=== PATIENT | female | born 1945 | race American Indian/Alaskan Native ===

== ENCOUNTER 2016-03-25 14:41 | Outpatient (CLI) | payer MEDICARE ==
[2016-03-25] MEDS ORDERED: XYLOCAINE 1% 20 mL INFILTRATI ONE (14:56)
[2016-03-25] MEDS ORDERED: DEPO-MEDROL INTRA-ARTI ONE (14:58)
--- NOTE | 2016-03-25 16:54 | Fluoroscopy Report ---
Left hip injection with fluoroscopic guidance. History: Left hip arthritis. Procedure: The patient's skin surface was prepped and draped using sterile technique. Local anesthetic was injected into the skin. A 22-gauge spinal needle was advanced into the joint capsule of the left hip. Initial injection of 1-2 cc of Omnipaque confirmed the intracapsular location of the needle tip. The subsequently, a mixture of 40 mg of Depo-Medrol and 2 mL of 1% lidocaine were injected successfully. The patient tolerated the procedure well clinically. No complications occurred.
== END 2016-03-25 14:42 | disposition home or self-care (01) ==
LOC: FLUORO 14:41
PROVIDERS: ATTEND Physical Medicine & Rehabilitation
DX: M16.9 Osteoarthritis of hip, unspecified (principal)
CPT/HCPCS: 20610; 77002; J1030; Q9965

== ENCOUNTER 2016-10-01 11:18 | Outpatient (CLI) | payer MEDICARE ==
--- NOTE | 2016-10-01 14:15 | Mammography Report ---
BONE DEXA:10/01/16 11:18:00 CLINICAL: Postmenopausal. No comparison. TECHNIQUE: Two site bone DEXA performed on an Hologic scanner. FINDINGS: The average BMD of the lumbar spine L1-L4 is 1.3-3g/cm squared with a T-score of +1.6 and a Z-score of +4.0. The average BMD of the left hip is 0.881g/cm squared with a T-score of -1.0 and a Z-score of +0.2. IMPRESSION: WHO classification: Normal with average fracture risk based on both spine and left hip measurements. RECOMMENDATION: Clinical correlation and routine screening. DEFINITIONS: BMD = Bone Mineral Density T-score = BMD related to mean peak bone mass of young adult (mean expressed in Standard Deviation) Z-score = Age matched BMD expressed in SD World Health Organization (WHO) Diagnostic Criteria Normal T-score > -1 SD Osteopenia T-score between -1 and -2.4 SD Osteoporosis T-score -2.5 SD or below NOTE: BMD is not the only risk factor for fracture. One should also consider factors such as the patient's age, risk of falling, previous osteoporotic fracture, family history of osteoporotic fractures, current smoker, and low body weight. Z-scores are not calculated if >80 years of age.
== END 2016-10-01 11:19 | disposition home or self-care (01) ==
LOC: SPVWC 11:18
PROVIDERS: ATTEND Internal Medicine
DX: M15.4 Erosive (osteo)arthritis (principal); Z78.0 Asymptomatic menopausal state
CPT/HCPCS: 77080

== ENCOUNTER 2016-10-27 13:53 | Emergency (ER) | payer MEDICARE ==
[2016-10-27 16:00] LABS: Basophils % (Auto) 1.5 % (0.0-1.8); Eosinophils % (Auto) 6.1 % (0.0-4.3); Hematocrit 35.7 % (30.3-42.9); Hemoglobin 11.7 gm/dl (10.1-14.3); Mean Corpuscular HGB Conc 33 % (30-34); Mean Corpuscular Hemoglobin 27 pg (28-32); Mean Corpuscular Volume 82 fl (79-97); Platelet Count 229 K/mm3 (140-440); Red Blood Count 4.37 M/mm3 (3.65-5.03); Red Cell Distribution Width 13.3 % (13.2-15.2); White Blood Count 5.7 K/mm3 (4.5-11.0)
[2016-10-27 16:15] LABS: INR 0.92 (0.87-1.13)
[2016-10-27 16:16] LABS: Partial Thromboplastin Time 26.7 Sec. (24.2-36.6)
[2016-10-27 16:19] LABS: Anion Gap 19 mmol/L; BUN/Creatinine Ratio 13.75; Blood Urea Nitrogen 11 mg/dL (7-17); Calcium 9.3 mg/dL (8.4-10.2); Carbon Dioxide 25 mmol/L (22-30); Chloride 104.7 mmol/L (98-107); Glucose 92 mg/dL (65-100); Potassium 3.8 mmol/L (3.6-5.0); Sodium 145 mmol/L (137-145)
[2016-10-27 16:23] LABS: Alanine Aminotransferase 10 units/L (7-56); Albumin/Globulin Ratio 0.9 %; Alkaline Phosphatase 126 units/L (35-129); Total Protein 8.6 g/dL (6.3-8.2)
[2016-10-27 16:27] LABS: Bilirubin,Direct < 0.2 mg/dL (0-0.2); Bilirubin,Indirect 0.2 mg/dL
--- NOTE | 2016-10-27 16:49 | XRay Report ---
FINAL REPORT EXAM: XR CHEST ROUTINE 2V HISTORY: marlee le swelling TECHNIQUE: Two view chest PA and lateral PRIORS: None. FINDINGS: Cardiac and mediastinal contours are unremarkable. No focal pulmonary infiltrate is identified. No pleural fluid collection seen. Pulmonary vasculature is unremarkable. IMPRESSION: Negative two-view chest
[2016-10-27 18:06] VITALS: BP 152/77
--- NOTE | 2016-10-29 18:34 | Emergency Department Report ---
Entered by WILLIS PAINTER, acting as scribe for RY BOB PA. ED Extremity Problem HPI - General Chief complaint: Extremity Problem,Nontraumatic Stated complaint: LEG PAIN Time Seen by Provider: 10/27/16 15:14 Source: patient Mode of arrival: Wheelchair Limitations: No Limitations - History of Present Illness Initial comments: 71 year old patient with PMHx arthritis and HTN presents to ED with c/o bilateral LE pain for 1 month. Patient states ankles are swollen with pitting edema. Patient reports she had similar symptoms before where she visited her PCP , Dr. Jacobo at [facility], and took her off the water pills she was prescribed. Patient states aggravation while moving, and alleviated while laying down. Denies numbness, tingling, chest pain, sob, fever, cough, fever, and chills. Patient reports no PMHx or FHx of CHF or DM. Patient is currently on 4 HTN meds. She said when she put her feet up swelling goes down but when she walks this when she has swelling. MD Complaint: extremity pain, extremity swelling, joint swelling, joint paint Onset/Timin -: month(s) (1) Location: bilateral lower extremity History of Same: No -: Yes arthralgia, No fever, No associated dyspnea, No associated chest pain Radiation: none Severity scale (0 -10): 7 Quality: aching Consistency: intermittent Improves with: elevation, rest Worsens with: weight bearing, walking, exertion, palpation Associated Symptoms: denies other symptoms, arthralgias. denies: chest pain, shortness of breath, fever, myalgias, rash - Related Data Previous Rx's Medication Instructions Recorded Last Taken Type traMADol [Ultram] 50 mg PO Q6HR PRN #12 tablet 10/27/16 Unknown Rx Allergies Allergy/AdvReac Type Severity Reaction Status Date / Time No Known Allergies Allergy Unverified 05/14/14 14:22 ED Review of Systems Comment: All other systems reviewed and negative Constitutional: denies: chills, fever Respiratory: denies: cough, shortness of breath, wheezing Cardiovascular: denies: chest pain, palpitations Gastrointestinal: denies: abdominal pain, nausea, vomiting, diarrhea Musculoskeletal: denies: back pain, joint swelling, arthralgia Skin: denies: rash, lesions Neurological: denies: headache, weakness, numbness, paresthesias ED Past Medical Hx - Past Medical History Previous Medical History?: Yes Hx Hypertension: Yes Hx Arthritis: Yes - Surgical History Past Surgical History?: Yes Additional Surgical History: - Family History Family history: hypertension - Social History Smoking Status: Never Smoker Substance Use Type: None - Medications Home Medications: Home Medications Medication Instructions Recorded Confirmed Last Taken Type traMADol [Ultram] 50 mg PO Q6HR PRN #12 tablet 10/27/16 Unknown Rx ED Physical Exam - General Limitations: No Limitations General appearance: alert, in no apparent distress - Head Head exam: Present: atraumatic, normocephalic, normal inspection - Eye Eye exam: Present: normal appearance, PERRL, EOMI. Absent: periorbital swelling , periorbital tenderness Pupils: Present: normal accommodation - ENT ENT exam: Present: normal exam, normal orophraynx, mucous membranes moist, TM's normal bilaterally, normal external ear exam - Neck Neck exam: Present: normal inspection, full ROM. Absent: tenderness, meningismus, lymphadenopathy - Respiratory Respiratory exam: Present: normal lung sounds bilaterally. Absent: respiratory distress, wheezes, rales, rhonchi, stridor, chest wall tenderness, accessory muscle use, decreased breath sounds - Cardiovascular Cardiovascular Exam: Present: regular rate, normal rhythm, normal heart sounds ( s1/s2). Absent: systolic murmur, diastolic murmur, JVD, S3, S4 - GI/Abdominal GI/Abdominal exam: Present: soft, normal bowel sounds. Absent: distended, tenderness, guarding, rebound, rigid, diminished bowel sounds - Extremities Exam Extremities exam: Present: full ROM, tenderness (bilateral ankle), normal capillary refill, pedal edema (bilateral LE edema, edema to her legs and ankle but, ankle is swollen than any extermity ), joint swelling, other (2+ pulses. Patient with swelling to both legs, ankles and feet. Swelling to ankle is greater than swelling to legs and feet. No neurovascular compromise.). Absent : normal inspection, calf tenderness - Back Exam Back exam: Present: normal inspection, full ROM. Absent: tenderness, CVA tenderness (R), CVA tenderness (L), muscle spasm, paraspinal tenderness, vertebral tenderness, rash noted - Neurological Exam Neurological exam: Present: alert, oriented X3, normal gait, reflexes normal. Absent: motor sensory deficit - Psychiatric Psychiatric exam: Present: normal affect, normal mood - Skin Skin exam: Present: warm, dry, intact, normal color. Absent: rash ED Course Vital Signs 10/27/16 10/27/16 15:02 18:05 Temperature 98.5 F 97.7 F Pulse Rate 73 77 Respiratory 18 18 Rate Blood Pressure 127/75 Blood Pressure 127/75 152/77 [Right] O2 Sat by Pulse 100 99 Oximetry Lab Results 10/27/16 10/27/16 10/27/16 Range/Units 15:29 15:29 15:51 WBC 5.7 (4.5-11.0) K/mm3 RBC 4.37 (3.65-5.03) M/mm3 Hgb 11.7 (10.1-14.3) gm/dl Hct 35.7 (30.3-42.9) % MCV 82 (79-97) fl MCH 27 L (28-32) pg MCHC 33 (30-34) % RDW 13.3 (13.2-15.2) % Plt Count 229 (140-440) K/mm3 Lymph % (Auto) 25.6 (13.4-35.0) % [place] % (Auto) 10.5 H (0.0-7.3) % Eos % (Auto) 6.1 H (0.0-4.3) % Baso % (Auto) 1.5 (0.0-1.8) % Lymph # 1.5 (1.2-5.4) K/mm3 [place] # 0.6 (0.0-0.8) K/mm3 Eos # 0.4 (0.0-0.4) K/mm3 Baso # 0.1 (0.0-0.1) K/mm3 Seg Neutrophils % 56.3 (40.0-70.0) % Seg Neutrophils # 3.2 (1.8-7.7) K/mm3 PT 12.8 (12.2-14.9) Sec. INR 0.92 (0.87-1.13) APTT 26.7 (24.2-36.6) Sec. Sodium 145 (137-145) mmol/L Potassium 3.8 (3.6-5.0) mmol/L Chloride 104.7 (98-107) mmol/L Carbon Dioxide 25 (22-30) mmol/L Anion Gap 19 mmol/L BUN 11 (7-17) mg/dL Creatinine 0.8 (0.7-1.2) mg/dL Estimated GFR > 60 ml/min BUN/Creatinine Ratio 13.75 % Glucose 92 (65-100) mg/dL Uric Acid (3.5-7.6) mg/dL Calcium 9.3 (8.4-10.2) mg/dL Total Bilirubin (0.1-1.2) mg/dL Direct Bilirubin (0-0.2) mg/dL Indirect Bilirubin mg/dL AST (5-40) units/L ALT (7-56) units/L Alkaline Phosphatase (35-129) units/L NT-Pro-B Natriuret Pep (0-900) pg/mL Total Protein (6.3-8.2) g/dL Albumin (3.9-5) g/dL Albumin/Globulin Ratio % 10/27/16 10/27/16 Range/Units 15:51 15:51 WBC (4.5-11.0) K/mm3 RBC (3.65-5.03) M/mm3 Hgb (10.1-14.3) gm/dl Hct (30.3-42.9) % MCV (79-97) fl MCH (28-32) pg MCHC (30-34) % RDW (13.2-15.2) % Plt Count (140-440) K/mm3 Lymph % (Auto) (13.4-35.0) % [place] % (Auto) (0.0-7.3) % Eos % (Auto) (0.0-4.3) % Baso % (Auto) (0.0-1.8) % Lymph # (1.2-5.4) K/mm3 [place] # (0.0-0.8) K/mm3 Eos # (0.0-0.4) K/mm3 Baso # (0.0-0.1) K/mm3 Seg Neutrophils % (40.0-70.0) % Seg Neutrophils # (1.8-7.7) K/mm3 PT (12.2-14.9) Sec. INR (0.87-1.13) APTT (24.2-36.6) Sec. Sodium (137-145) mmol/L Potassium (3.6-5.0) mmol/L Chloride (98-107) mmol/L Carbon Dioxide (22-30) mmol/L Anion Gap mmol/L BUN (7-17) mg/dL Creatinine (0.7-1.2) mg/dL Estimated GFR ml/min BUN/Creatinine Ratio % Glucose (65-100) mg/dL Uric Acid 3.6 (3.5-7.6) mg/dL Calcium (8.4-10.2) mg/dL Total Bilirubin 0.40 (0.1-1.2) mg/dL Direct Bilirubin < 0.2 (0-0.2) mg/dL Indirect Bilirubin 0.2 mg/dL AST 19 (5-40) units/L ALT 10 (7-56) units/L Alkaline Phosphatase 126 (35-129) units/L NT-Pro-B Natriuret Pep 214.5 (0-900) pg/mL Total Protein 8.6 H (6.3-8.2) g/dL Albumin 4.0 (3.9-5) g/dL Albumin/Globulin Ratio 0.9 % - Reevaluation(s) Reevaluation #1: 10/27/16 17:36 Patient remained stable throughout ED course ED Medical Decision Making - Lab Data Result diagrams: 10/27/16 15:29 10/27/16 15:29 Lab Results 10/27/16 10/27/16 10/27/16 Range/Units 15:29 15:29 15:51 WBC 5.7 (4.5-11.0) K/mm3 RBC 4.37 (3.65-5.03) M/mm3 Hgb 11.7 (10.1-14.3) gm/dl Hct 35.7 (30.3-42.9) % MCV 82 (79-97) fl MCH 27 L (28-32) pg MCHC 33 (30-34) % RDW 13.3 (13.2-15.2) % Plt Count 229 (140-440) K/mm3 Lymph % (Auto) 25.6 (13.4-35.0) % [place] % (Auto) 10.5 H (0.0-7.3) % Eos % (Auto) 6.1 H (0.0-4.3) % Baso % (Auto) 1.5 (0.0-1.8) % Lymph # 1.5 (1.2-5.4) K/mm3 [place] # 0.6 (0.0-0.8) K/mm3 Eos # 0.4 (0.0-0.4) K/mm3 Baso # 0.1 (0.0-0.1) K/mm3 Seg Neutrophils % 56.3 (40.0-70.0) % Seg Neutrophils # 3.2 (1.8-7.7) K/mm3 PT 12.8 (12.2-14.9) Sec. INR 0.92 (0.87-1.13) APTT 26.7 (24.2-36.6) Sec. Sodium 145 (137-145) mmol/L Potassium 3.8 (3.6-5.0) mmol/L Chloride 104.7 (98-107) mmol/L Carbon Dioxide 25 (22-30) mmol/L Anion Gap 19 mmol/L BUN 11 (7-17) mg/dL Creatinine 0.8 (0.7-1.2) mg/dL Estimated GFR > 60 ml/min BUN/Creatinine Ratio 13.75 % Glucose 92 (65-100) mg/dL Uric Acid (3.5-7.6) mg/dL Calcium 9.3 (8.4-10.2) mg/dL Total Bilirubin (0.1-1.2) mg/dL Direct Bilirubin (0-0.2) mg/dL Indirect Bilirubin mg/dL AST (5-40) units/L ALT (7-56) units/L Alkaline Phosphatase (35-129) units/L NT-Pro-B Natriuret Pep (0-900) pg/mL Total Protein (6.3-8.2) g/dL Albumin (3.9-5) g/dL Albumin/Globulin Ratio % 10/27/16 10/27/16 Range/Units 15:51 15:51 WBC (4.5-11.0) K/mm3 RBC (3.65-5.03) M/mm3 Hgb (10.1-14.3) gm/dl Hct (30.3-42.9) % MCV (79-97) fl MCH (28-32) pg MCHC (30-34) % RDW (13.2-15.2) % Plt Count (140-440) K/mm3 Lymph % (Auto) (13.4-35.0) % [place] % (Auto) (0.0-7.3) % Eos % (Auto) (0.0-4.3) % Baso % (Auto) (0.0-1.8) % Lymph # (1.2-5.4) K/mm3 [place] # (0.0-0.8) K/mm3 Eos # (0.0-0.4) K/mm3 Baso # (0.0-0.1) K/mm3 Seg Neutrophils % (40.0-70.0) % Seg Neutrophils # (1.8-7.7) K/mm3 PT (12.2-14.9) Sec. INR (0.87-1.13) APTT (24.2-36.6) Sec. Sodium (137-145) mmol/L Potassium (3.6-5.0) mmol/L Chloride (98-107) mmol/L Carbon Dioxide (22-30) mmol/L Anion Gap mmol/L BUN (7-17) mg/dL Creatinine (0.7-1.2) mg/dL Estimated GFR ml/min BUN/Creatinine Ratio % Glucose (65-100) mg/dL Uric Acid 3.6 (3.5-7.6) mg/dL Calcium (8.4-10.2) mg/dL Total Bilirubin 0.40 (0.1-1.2) mg/dL Direct Bilirubin < 0.2 (0-0.2) mg/dL Indirect Bilirubin 0.2 mg/dL AST 19 (5-40) units/L ALT 10 (7-56) units/L Alkaline Phosphatase 126 (35-129) units/L NT-Pro-B Natriuret Pep 214.5 (0-900) pg/mL Total Protein 8.6 H (6.3-8.2) g/dL Albumin 4.0 (3.9-5) g/dL Albumin/Globulin Ratio 0.9 % - Radiology Data Radiology results: report reviewed Chest x-ray revealed no acute cardiopulmonary processes Bilateral venous Doppler revealed no SVT or DVT. - Medical Decision Making ED course: 71-year-old female presents to the emergency room with bilateral lower extremity swelling that some in ongoing on and off and she's been managed by her primary care physician. Patient has multiple medical problems and she says she was on water pill in the past but the doctor took her off water pill due to problems or kidney. Ultrasound bilateral lower extremity revealed no DVT or SVT and chest x-ray stable. Lab work to include CBC, PT PTT, CMP is stable BNP stable. This is a chronic problem and its been ongoing to patient and she said it resolves when she elevated her legs but when she stands up her legs become swollen. I discussed the patient lab results and diagnostics results and told her she'll need to follow up with her primary care physician for further management. She was understanding of diagnosis and treatment plan and discharged home with her family in stable condition Diagnostic/Lab:Chest x-ray revealed no acute cardiopulmonary processes Bilateral venous Doppler revealed no SVT or DVT. CBC, CMP, PT PTT,BNP stable. Assessment/plan 1. Bilateral lower extremity edema 2. Arthralgia multiple sites bilaterally Patient discharged home with prescription for tramadol to help with pain in her legs and to follow-up with her primary care physician regarding chronic swelling to her lower extremity. ED Disposition Clinical Impression: Bilateral lower extremity edema, Arthralgia of multiple sites, bilateral Disposition: DC-01 TO HOME OR SELFCARE Is pt being admited?: No Does the pt Need Aspirin: No Condition: Stable Instructions: Leg Edema (ED), Arthralgia (ED) Additional Instructions: Please follow-up via primary care physician at this [facility] regarding chronic lower extremity edema when resting please elevate with legs to reduce swelling Prescriptions: traMADol [Ultram] 50 mg PO Q6HR PRN #12 tablet PRN Reason: Pain Referrals: PRIMARY CARE, [Primary Care Provider] - 10/28/16 This documentation as recorded by the INOCENCIO rae PEARL,accurately reflects the service I personally performed and the decisions made by me,RY BOB PA.
== END 2016-10-27 18:06 | disposition home or self-care (01) ==
LOC: ED 13:53
DX: R60.0 Localized edema (principal); I10 Essential (primary) hypertension; M19.90 Unspecified osteoarthritis, unspecified site
CPT/HCPCS: 36415; 71020; 80048; 80074; 83880; 84550; 85025; 85610; 85730; 93970; 99284

== ENCOUNTER 2019-04-04 13:03 | Outpatient (CLI) | payer MEDICARE ==
--- NOTE | 2019-04-04 16:16 | Mammography Report ---
BONE DEXA CLINICAL: Postmenopausal. COMPARISON: 10/01/2016 for the spine. No comparison for the left forearm. TECHNIQUE: 2 site bone DEXA performed on an Hologic scanner. FINDINGS: The average BMD of the lumbar spine L1-L4 is 1.242g/cm squared with a T score of +0.8 and a Z score o f +3.4. This compares to 1.3-3g/cm squared on the last exam and represents a -6.1 % change from the p revious baseline. The average BMD of the left forearm is 0.408 g/cm squared with a T score of -3.1and a Z score of -0.6 . IMPRESSION: 1. WHO classification: Normal with average fracture risk based on spine measurements. 2. WHO classification Osteoporosis with high fracture risk based on left forearm measurements. 3. A moderate decline in spine BMD compared to the last exam. RECOMMENDATION: Clinical correlation and routine screening. Definitions: BMD equal bone mineral density T score = BMD related to peak bone mass of young adult ([place] expressed an standard deviation) Z score = age-matched BMD expressed in SD World health organization (WHO) diagnostic criteria Normal T score greater than equal to 1 standard deviation Osteopenia T score between -1 and -2.4 standard deviation Osteoporosis T score -2.5 standard deviation or below. Note: BMD is not the only risk factor for fracture; also consider factors such as the patient's age, risk of falling, previous osteoporotic fracture, family history of osteoporotic fractures, current sm oker and low body weight. Z scores are not calculated if greater than 80 years of age. Signer Name: Erickson Mireles MD Signed: 04/04/2019 4:11 PM Workstation Name: [id number]
--- NOTE | 2019-04-04 16:18 | Mammography Report ---
DIGITAL SCREENING MAMMOGRAM WITH CAD, 04/04/2019 INDICATION: Routine screening mammography. TECHNIQUE: Digital bilateral 2D mammography was obtained in the craniocaudal and mediolateral obliq ue projections. This examination was interpreted with the benefit of Computer-Aided Detection analysi s. COMPARISON: None available. FINDINGS: Breast Density: The breasts are heterogeneously dense, which may obscure small masses. There is no evidence of dominant mass, suspicious calcifications or architectural distortion in eithe r breast. A few scattered bilateral benign calcifications. IMPRESSION: No mammographic evidence of malignancy. Follow up recommendation: Routine yearly BI-RADS Category 2: Benign. A "normal" or negative report should not discourage follow up or biopsy of a clinically significant f inding. A written summary of these findings will be mailed to the patient. The patient will be entered into a mammography reporting system which will generate a reminder letter for the patient's next appointmen t at the appropriate interval. The [employer] recommends yearly mammograms starting at age 40 and continuing as l caprice as a woman is in good health. Breast MRI is recommended for women with an approximate 20-25% or greater lifetime risk of breast cancer, including women with a strong family history of breast or ova gregg cancer or who have been treated for Hodgkin's disease. Signer Name: Erickson Mireles MD Signed: 04/04/2019 4:13 PM Workstation Name: [id number]
== END 2019-04-04 13:04 | disposition home or self-care (01) ==
LOC: SPVWC 13:03
PROVIDERS: ATTEND Family Medicine
DX: Z12.31 Encounter for screening mammogram for malignant neoplasm of breast (principal); N64.89 Other specified disorders of breast; Z91.89 Other specified personal risk factors, not elsewhere classified; Z78.0 Asymptomatic menopausal state
CPT/HCPCS: 77067; 77080